=== PATIENT | female | born 1970 | race Caucasian/White ===

== ENCOUNTER 2019-04-03 13:34 | Emergency (ER) | payer MEDICAID, OTHER ==
[~2019-04-03] VITALS: Ht 162.6 cm; Wt 63.0 kg
[~2019-04-03 13:34] MED LIST: CETI10TA24 PO; CHLO25CA9 PO; DIAZ10TA PO; FOLI-17 PO; HYDR-3240 PO; NADO20TA12 PO; OMEP40CA42 PO; THIA100T67 PO; VENL75CA PO
[2019-04-03 13:53] VITALS: BP 157/110
[2019-04-03 14:40] LABS: BASOPHILS # (AUTO) 0.06 x10^3/uL (0-0.1); BASOPHILS % (AUTO) 1 % (0-1); EOSINOPHILS # (AUTO) 0.09 x10^3/uL (0-0.4); EOSINOPHILS % (AUTO) 1 % (1-7); LYMPHOCYTES # (AUTO) 2.71 x10^3/uL (1-3.4); LYMPHOCYTES % (AUTO) 28 % (22-44); MD NO; MEAN CORPUSCULAR HEMOGLOBIN 28.2 pg (27.0-34.8); MEAN CORPUSCULAR HGB CONC 32.4 g/dL (32.4-35.8); MEAN CORPUSCULAR VOLUME 87.1 fL (80-100); MEAN PLATELET VOLUME 7.7 fL (7.4-10.4); MONOCYTES # (AUTO) 0.81 x10^3/uL (0.2-0.8); MONOCYTES % (AUTO) 9 % (2-9); NEUTROPHILS # (AUTO) 5.85 x10^3/uL (1.8-6.8); NEUTROPHILS % (AUTO) 62 % (42-75); PLATELET COUNT 448 x10^3/uL (130-400); RED CELL DISTRIBUTION WIDTH 14.8 % (9.6-15.2)
[2019-04-03 14:50] LABS: CHLORIDE 109 mmol/L (98-107)
[2019-04-03 14:51] LABS: ALANINE AMINOTRANSFERASE 60 U/L (12-78); ALBUMIN 3.8 g/dL (3.4-5.0); ANION GAP 8 mmol/L (5-15); CALCIUM 8.2 mg/dL (8.5-10.1); CREATININE 0.71 mg/dL (0.55-1.02)
[2019-04-03 14:57] LABS: ALKALINE PHOSPHATASE 252 U/L (45-117); BILIRUBIN,TOTAL 0.4 mg/dL (0.2-1.0); TOTAL PROTEIN 8.1 g/dL (6.4-8.2)
[2019-04-03] MEDS ORDERED: ONDANSETRON ODT 4 MG ONE (16:15)
[2019-04-03] MEDS ORDERED: ONDANSETRON ODT 4 MG PO ONE (16:30)
--- NOTE | 2019-04-03 16:36 | NUR ---
REPEAT CT ORDERED D/T ARTIFACT. C-COLLAR REMAINS IN PLACE. PT SITTING UP, OKAY PER ERP D/T PT CO NAUSEA. PT MEDICATED PER EMAR FOR NAUSEA
--- NOTE | 2019-04-03 16:50 | NUR ---
PT LAYING FLAT IN GURNEY W/ EYES CLOSED. NAD NOTED. RESPIRATIONS EVEN/UNLABORED.
--- NOTE | 2019-04-03 17:06 | NUR ---
PT TO REPEAT CT
--- NOTE | 2019-04-03 17:43 | NUR ---
PT UP TO DEVAN W/ PORFIRIO WO NOTIFYING RN. PT ASSISTED TO CHAU. C-COLLAR CLEAERED. PT TO RADIOLOGY AT THIS TIME.
--- NOTE | 2019-04-03 18:00 | NUR ---
PT RETURNED FROM RAD. NAD NOTED. CALL LIGHT WITHIN REACH
--- NOTE | 2019-04-03 18:08 | NUR ---
DESPITE EDUCATION, PT AGAIN OUT OF BED TO BATHROOM ACROSS DAVID WO PRESSING CALL LIGHT OR REQUESTING ASSISTANCE.
--- NOTE | 2019-04-03 18:51 | NUR ---
RN TO ROOM TO ACCESS APPROPRIATENESS FOR DC. PT NO LONGER IN ROOM. CRUTCHES AND ALL PERSONAL BELONGING REMOVED FROM ROOM. PT ASSUMED TO HAVE LEFT. DC INSTRUCTIONS TO CHARGE DESK IN THE EVENT THE PT RETURNS.
== END 2019-04-03 18:54 | disposition home or self-care (01) ==
LOC: ED 18:48
DX: S16.1XXA Strain of muscle, fascia and tendon at neck level, initial encounter (principal); S70.02XA Contusion of left hip, initial encounter; S70.12XA Contusion of left thigh, initial encounter; S09.90XA Unspecified injury of head, initial encounter; F10.220 Alcohol dependence with intoxication, uncomplicated; Z90.49 Acquired absence of other specified parts of digestive tract; W10.8XXA Fall (on) (from) other stairs and steps, initial encounter; Y93.01 Activity, walking, marching and hiking; Y92.099 Unspecified place in other non-institutional residence as the place of occurrence of the external cause; Y99.8 Other external cause status
CPT/HCPCS: 36415; 70450; 72125; 73502; 73552; 80053; 80307; 85025; 99284; Q0162